=== PATIENT | male | born 1980 | race Caucasian/White ===

== ENCOUNTER 2022-06-18 18:47 | Emergency (ER) | payer OTHER ==
[~2022-06-18] VITALS: Wt 99.8 kg
[~2022-06-18 18:47] MED LIST: ATIVAN1 MG PO; DOXYCYCLINE HY100 M3 PO; SEPTDS PO
[2022-06-18] MEDS ORDERED: LISINOPRIL30 MG PO (19:00)
[2022-06-18] MEDS ORDERED: MONTELUKAST SOD10 MG PO (19:00)
[2022-06-18] MEDS ORDERED: VIBRAMYCIN100 MG PO (19:10)
== END 2022-06-18 19:19 | disposition home or self-care (01) ==
LOC: ED 18:47
DX: L02.512 Cutaneous abscess of left hand (principal); Z79.899 Other long term (current) drug therapy